=== PATIENT | female | born 1960 | race Caucasian/White ===

== ENCOUNTER 2021-02-12 09:43 | Outpatient (REF) | payer BC, SELFPAY ==
[2021-02-12 12:15] LABS: Alanine Aminotransferase 11 U/L (0-31); Anion Gap 13 (12-20); Aspartate Amino Transferase 16 U/L (5-31); Blood Urea Nitrogen 15 mg/dL (9-16); Calcium 9.8 mg/dL (8.4-10.2); Carbon Dioxide 27 mmol/L (22-29); Chloride 104 mmol/L (96-108); Estimated Glomerular Filt Rate > 60; Glucose Fasting 83 mg/dL (60-99); Iron 90 mcg/dL (30-160); Percent Iron Saturation 29 % (15-50); Potassium 4.3 mmol/L (3.3-5.1); Sodium 140 mmol/L (135-145); Total Iron Binding Capacity 315 mcg/dL (228-428); Unsaturated Iron Binding 225 ug/dL
[2021-02-12 12:23] LABS: TSH reflex Free T4 0.81 uIU/mL (0.32-4.0); Vitamin D 25-OH Total 26.1 ng/mL (>30)
== END 2021-02-12 09:44 | disposition home or self-care (01) ==
LOC: HO.HMGCLDS 09:43
PROVIDERS: PCP Internal Medicine; Visit Provider Internal Medicine
DX: F41.8 Other specified anxiety disorders (principal); I10 Essential (primary) hypertension; Z78.0 Asymptomatic menopausal state
CPT/HCPCS: 36415; 80048; 82306; 83540; 84443; 84450; 84460

== ENCOUNTER 2022-06-30 11:39 | Outpatient (AMB) | payer BC, SELFPAY ==
--- NOTE | 2022-06-30 12:00 | MHC.PC.OV ---
Vital Signs 06/30/22 12:04 Height 5 ft Weight 116 lb BMI 22.6 BP 152/100 H Blood Pressure Location Lt brachial Position Sitting Pulse 75 Pulse Source Pulse Oximeter Pulse Oximetry (%) 98 Oxygen Delivery Method Room Air Intake Visit Reasons: Med review Intake Note: Pt is here today for a b/p follow-up and medication refills Allergies No Known Allergies Allergy (Verified 10/24/22 14:07) Medication List - Last Reconciled 06/30/22 by Charissa Bruno MD amlodipine 5 mg PO DAILY lisinopril 20 mg PO DAILY metoprolol succinate ER 50 mg PO QPM paroxetine HCl 30 mg PO DAILY Tobacco use date assessed: 06/30/22 HPI Med review HPI Details 61-year-old lady with hypertension, dyslipidemia, with depression and anxiety, here today for her follow-up. She has been taking her medications as directed, but remains sedentary no regular exercise done. She also continues to smoke cigarettes at least 1 and half pack a day, with no desire to quit. [facility] Medical History Depression with anxiety Dyslipidemia Essential hypertension Fracture of left distal radius History of iron deficiency anemia Smoker unmotivated to quit Vitamin D deficiency Surgical History Previous section Family History Brother Lung cancer Mother Dementia Brother Lung cancer Social History Housing: House Patient Tobacco Use Status: Current everyday Tobacco user Tobacco use type: Cigarette Cigarette Packs Per Day: 1.5 Cigarettes Per Day: 10 Years Smoked: 22 e-Cigarette/Vaping Use: Never Used Second Hand Smoke Exposure: No service: No Current occupational status: employed and unemployed Cognitive needs: No Hearing needs: No Vision needs: No Questionnaire PHQ-9 Over the last 2 weeks, how often have you been bothered by any of the following problems? 1. Little interest or pleasure in doing things: several days 2. Feeling down, depressed, or hopeless: not at all 3. Trouble falling or staying asleep, or sleeping too much: not at all 4. Feeling tired or having little energy: not at all 5. Poor appetite or overeating: not at all 6. Feeling bad about yourself - or that you are a failure or have let yourself or your family down: not at all 7. Trouble concentrating on things, such as reading the newspaper or watching television: several days 8. Moving or speaking so slowly that other people could have noticed. Or the opposite - being so fidgety or restless that you have been moving around a lot more than usual: not at all 9. Thoughts that you would be better off or of hurting yourself in some way: not at all Total score: 2 Depression Screening Interpretation: Positive Depression Screening Follow-up: Existing condition, In treatment and Community Mental Health Worker F/U 71484 - PHQ-9 Billing: Yes Source: Developed by Drs. Jarrod Craft, Tamia Dunham, Ashish Nieto and colleagues, with an educational mireya from [employer]. Thrive Questionnaire Declines Thrive assessment: No Date Thrive assessed: 06/30/22 I am a: Patient What is your living situation today?: I have a steady place to live Within the past 12 months, did the food you bought not last and you didn't have the money to get more?: Never true Within the past 12 months, did you worry whether your food would run out before you got money to buy more?: Never true Do you have trouble paying for medicines?: No Do you have trouble getting transportation to medical appointments?: No Do you have trouble paying your heating and electricity bill?: No Do you have trouble taking care of your child, family member or friend?: No Do you have trouble with day-to-day activities such as bathing, preparing meals, shopping, managing finances, etc.?: No Are you currently unemployed and looking for a job?: No Are you interested in more education?: No AUDIT C Alcohol Use Questionnaire (AUDIT-C) 1. How often do you have a drink containing alcohol?: Never Total Score: 0 CHICA-7 AMB Questionnaire CHICA-7 Date CHICA - 7 assessed: 06/30/22 Feeling nervous, anxious, or on edge: 3 = Nearly every day Not being able to stop or control worryin = Nearly every day Worrying too much about different things: 3 = Nearly every day Trouble relaxin = Nearly every day Being so restless that it is hard to sit still: 3 = Nearly every day Becoming easily annoyed or irritable: 1 = Several days Feeling afraid as if something awful might happen: 3 = Nearly every day Total CHICA-7 score (0-4 normal; 5-9 mild; 10-14 moderate; 15-21 severe): 19 Source: Developed by Drs. Jarrod Craft, Tamia Dunham, Ashish Nieto and colleagues, with an educational mireya from [employer]. CHICA-7 Assessment Billing CHICA-7 Assessment Tool: CHICA-7 Assessment 11185 Review of Systems Const Denies body aches, Denies fatigue, Denies fever(s) and Denies headache(s) Eyes Denies change in vision ENT Denies vertigo, Denies dizziness, Denies headache(s), Denies nasal congestion, Denies nasal discharge, Denies disequilibrium and Denies sore throat Card Denies chest pain, Denies lightheadedness, Denies palpitations and Denies dyspnea Resp Denies chest congestion, Denies cough and Denies dyspnea GI Denies abdominal pain, Denies change in bowel habits and Denies heartburn Musc Denies arthralgias, Denies joint swelling and Denies stiffness Skin/Breast Denies lesions and Denies rash Neuro Denies vertigo, Denies dizziness, Denies headache(s) and Denies disequilibrium Psych Reports as per HPI Endo Denies fatigue, Denies polydipsia, Denies polyuria and Denies palpitations Abdoulaye/Lymph Reports no additional complaints Physical exam (Primary Care) Vital Signs: Last Vital Signs Pulse 75 06/30/22 12:04 BP 152/100 H 06/30/22 12:04 Pulse Ox 98 06/30/22 12:04 Oxygen Delivery Method Room Air 06/30/22 12:04 BMI result Body Mass Index 22.6 Tobacco/Smoking Status: Tobacco use Status Tobacco use date assessed 06/30/22 06/30/22 12:08 Patient Tobacco Use Status Current everyday Tobacco 06/30/22 12:02 Tobacco use type Cigarette 06/30/22 12:02 e-Cigarette/Vaping Use Never Used 06/30/22 12:02 Are you ready to quit: No Tobacco cessation counseling provided: Yes Items discussed: Nicotine replacement PHQ-9: PHQ-9 Score PHQ-9: Total score 2 06/30/22 12:26 Depression Screening Interpretation: Positive Depression Screening Follow-up: Existing condition, In treatment and Community Mental Health Worker F/U Thrive Assessment: Date of Thrive Assessment Date Thrive assessed 06/30/22 06/30/22 12:11 Const General: comfortable and no acute distress Nutritional Appearance: average body habitus Orientation/consciousness: patient oriented x3 HENMT General nose exam: Normal external nose present Mouth: Normal oral and palatal mucosa present, oropharynx normal and moist mucous membranes Throat: Yes posterior oropharynx normal Neck Neck: Yes full ROM, Yes no lymphadenopathy and Yes supple Thyroid: Thyroid normal Resp Effort & Inspection: normal respiratory effort and able to speak in complete sentences Auscultation: clear to auscultation bilaterally Cardio Rate: regular rate Rhythm: regular rhythm Heart sounds: S1 normal heart sound present and S2 normal heart sound present GI Inspection: Yes normal to inspection Palpation (GI): Soft to palpation, nontender and no masses Auscultation: normal bowel sounds Back/Spine/Pelvis Cervical Spine: cervical ROM normal Thoracic/Lumbar Spine: thoracic and lumbar spine normal to inspection Skin General skin exam: no rashes or lesions noted Neuro General: patient oriented x3, gait normal and no focal motor deficits Cognition (Neuro): normal cognition Gait exam (Neuro): Normal gait present Motor exam (neuro): 5/5 motor strength present throughout Psych Appearance: grossly normal Mental Status: mental status grossly normal Speech and movement: Normal speech and movement present Affect: normal affect Assessment and Plan Assessment & Plan (1) Essential hypertension: Code(s): I10 - Essential (primary) hypertension Plan: Blood pressure still not at goal of less than 130/80. Continue with lisinopril and metoprolol, advised to take metoprolol at bedtime, increased dose of amlodipine to 10 mg per tablet to take once a day in a.m. together with lisinopril. Reinforced importance of following a low sodium diet, getting regular exercise, and lowering stress levels. Strongly advised to quit smoking. Referred to nurse navigator to get blood pressure checked again in 1 or 2 weeks (2) Dyslipidemia: Code(s): E78.5 - Hyperlipidemia, unspecified Plan: Fasting lipid panel ordered. Advised adherence to low-cholesterol diet and regular exercise, at least 30 minutes 3 to 4 times a week. Advised patient to make healthy food choices, eat more fruits, vegetables, whole grains, wild caught fish and low-fat dairy. Limit amount of meat and fried or fatty food products, as well as processed foods and fast foods. (3) Vitamin D deficiency: Code(s): E55.9 - Vitamin D deficiency, unspecified Plan: Will check vitamin-D level (4) Pap smear for cervical cancer screening: Code(s): Z12.4 - Encounter for screening for malignant neoplasm of cervix Plan: Referred to [facility] for her routine Pap and pelvic exam, has not been checked for several years now (5) Postmenopausal: Code(s): Z78.0 - Asymptomatic menopausal state Plan: Smoking cessation strongly advised, advised to do regular weight-bearing exercise, and take adequate calcium from dietary sources and at least 2000 units of vitamin-D 3 daily. Bone density scan ordered (6) Depression with anxiety: Code(s): F41.8 - Other specified anxiety disorders Plan: Stable and controlled on paroxetine 30 mg daily (7) Smoker unmotivated to quit: Code(s): F17.200 - Nicotine dependence, unspecified, uncomplicated Plan: Patient strongly advised to stop smoking, as smoking damages blood vessels, degenerative of joints and spine, damage to lungs and heart., predisposes to developing certain cancers like lung, breast, bladder, colon. Recommended to try decreasing cigarette use by 1-2 cigarettes a day. Advised to monitor what triggers are for smoking so that this can be discussed on the next office visit. We can discuss different options to quit smoking when ready. Recommend referral for lung cancer screening and pulmonary function testing but patient declined Orders: Orders Alanine Aminotransferase 06/30/22 E78.5 - Hyperlipidemia, unspecified, I10 - Essential (primary) hypertension, E55.9 - Vitamin D deficiency, unspecified Aspartate Amino Transferase 06/30/22 E78.5 - Hyperlipidemia, unspecified, I10 - Essential (primary) hypertension, E55.9 - Vitamin D deficiency, unspecified Basic Metabolic Panel Fasting 06/30/22 E78.5 - Hyperlipidemia, unspecified, I10 - Essential (primary) hypertension, E55.9 - Vitamin D deficiency, unspecified Vitamin D 25-OH Total 06/30/22 E78.5 - Hyperlipidemia, unspecified, I10 - Essential (primary) hypertension, E55.9 - Vitamin D deficiency, unspecified XR DEXA axial skeleton 06/30/22 Z12.31 - Encounter for screening mammogram for malignant neoplasm of breast, Z78.0 - Asymptomatic menopausal state MM screening mammo BI 06/30/22 Z12.31 - Encounter for screening mammogram for malignant neoplasm of breast, Z78.0 - Asymptomatic menopausal state Lipid Panel 06/30/22 E78.5 - Hyperlipidemia, unspecified, I10 - Essential (primary) hypertension, E55.9 - Vitamin D deficiency, unspecified Referrals Cologuard Test Z12.12 - Encounter for screening for malignant neoplasm of rectum, Z12.11 - Encounter for screening for malignant neoplasm of colon [employer] Referral Z12.4 - Encounter for screening for malignant neoplasm of cervix Medications: Changed From amlodipine 5 mg PO DAILY 90 tabs 0RF I10 - Essential (primary) hypertension To amlodipine 10 mg PO DAILY 30 tabs 5RF I10 - Essential (primary) hypertension Coding Level of Care Code Est Pt Level 4 (68462) Diagnoses Essential hypertension I10 Dyslipidemia E78.5 Vitamin D deficiency E55.9 Pap smear for cervical cancer screening Z12.4 Postmenopausal Z78.0 Depression with anxiety F41.8 Smoker unmotivated to quit F17.200 Additional Codes CHICA-7 Assessment Billing - CHICA-7 Assessment Tool: CHICA-7 Assessment 33536 ([id number])
[2022-06-30 12:04] VITALS: BP 152/100; PULSE 75; O2SAT 98; BMI 22.6
== END 2022-06-30 12:44 | disposition home or self-care (01) ==
LOC: HO.HMGC 11:39
PROVIDERS: PCP Internal Medicine; Visit Provider Internal Medicine
DX: I10 Essential (primary) hypertension (principal); E78.5 Hyperlipidemia, unspecified; E55.9 Vitamin D deficiency, unspecified; Z12.4 Encounter for screening for malignant neoplasm of cervix; Z78.0 Asymptomatic menopausal state; F41.8 Other specified anxiety disorders; F17.200 Nicotine dependence, unspecified, uncomplicated
CPT/HCPCS: 99499

== ENCOUNTER 2022-06-30 12:47 | Outpatient (REF) | payer BC, SELFPAY ==
[2022-06-30 14:57] LABS: Alanine Aminotransferase 17 U/L (0-31); Anion Gap 11 (12-20); Aspartate Amino Transferase 18 U/L (5-31); Blood Urea Nitrogen 14 mg/dL (9-16); Calcium 10.1 mg/dL (8.4-10.2); Carbon Dioxide 30 mmol/L (22-29); Chloride 101 mmol/L (96-108); Cholesterol 281 mg/dL; Estimated Glomerular Filt Rate > 60; Glucose Fasting 85 mg/dL (60-99); HDL Cholesterol 72 mg/dL; LDL Cholesterol Calculated 191 mg/dl; Potassium 3.9 mmol/L (3.3-5.1); Sodium 138 mmol/L (135-145); Triglycerides 90 mg/dL; Vitamin D 25-OH Total 56.4 ng/mL (>30)
== END 2022-06-30 12:48 | disposition home or self-care (01) ==
LOC: HO.HMGCLDS 12:47
PROVIDERS: PCP Internal Medicine; Visit Provider Internal Medicine
DX: E55.9 Vitamin D deficiency, unspecified (principal); E78.5 Hyperlipidemia, unspecified; I10 Essential (primary) hypertension
CPT/HCPCS: 36415; 80048; 80061; 82306; 84450; 84460

== ENCOUNTER 2023-11-26 07:21 | Outpatient (REF) | payer BC, SELFPAY ==
[2023-11-26 10:58] LABS: Alanine Aminotransferase 14 U/L (0-31); Anion Gap 13 (12-20); Aspartate Amino Transferase 18 U/L (5-31); Blood Urea Nitrogen 13 mg/dL (9-16); Calcium 9.8 mg/dL (8.4-10.2); Carbon Dioxide 29 mmol/L (22-29); Chloride 103 mmol/L (96-108); Cholesterol 261 mg/dL (<200); Estimated Glomerular Filt Rate > 60; Glucose Fasting 91 mg/dL (60-99); HDL Cholesterol 66 mg/dL (>40); LDL Cholesterol Calculated 177 mg/dL (<100); Potassium 3.8 mmol/L (3.3-5.1); Sodium 141 mmol/L (135-145); Triglycerides 93 mg/dL (<150)
[2023-11-26 11:14] LABS: Vitamin D 25-OH Total 40.2 ng/mL (>30)
== END 2023-11-26 07:22 | disposition home or self-care (01) ==
LOC: HO.HMGCLDS 07:21
PROVIDERS: PCP Internal Medicine; Visit Provider Internal Medicine
DX: E55.9 Vitamin D deficiency, unspecified (principal); E78.5 Hyperlipidemia, unspecified; F41.8 Other specified anxiety disorders; I10 Essential (primary) hypertension
CPT/HCPCS: 36415; 80048; 80061; 82306; 84450; 84460

== ENCOUNTER 2023-12-01 13:21 | Outpatient (AMB) | payer BC, SELFPAY ==
--- NOTE | 2023-12-01 13:54 | A.OFFPC_ITS ---
<Statement entered by Charissa Bruno MD - 12/06/24 15:30> This note has been administratively?closed. Vital Signs 12/01/23 14:02 Height 5 ft Weight 122 lb BMI 23.8 BP 158/90 H Blood Pressure Location Lt brachial Position Sitting Pulse 81 Pulse Source Pulse Oximeter Pulse Oximetry (%) 97 Oxygen Delivery Method Room Air Intake Visit Reasons: physical, medications, last seen 06/2022 Intake Note: Pt is here today for her PE: Pt states doens't remember last mammogram or papsmear and she never had colonoscopy and declines it( pt hasn't taken b/p med lisinopril x1wk) Allergies No Known Allergies Allergy (Verified 12/01/23 14:23) Medication List - Last Reconciled 12/01/23 by Charissa Bruno MD amlodipine 10 mg PO DAILY lisinopril 20 mg PO DAILY metoprolol succinate ER 50 mg PO QPM paroxetine HCl 30 mg PO DAILY Tobacco use date assessed: 12/01/23 Dental Screening Dental Screen Date: 12/01/23 Did you have a dental visit in the last 12 months?: Yes Did you have a dental problem in the last 6 months where you did not have access to dental care?: Yes Was dental information given to patient?: Patient has dentist HPI physical, medications, last seen 06/2022 HPI Details 62 year old lady with Hypertension PFSH Medical History Depression with anxiety Dyslipidemia Essential hypertension Fracture of left distal radius History of iron deficiency anemia Smoker unmotivated to quit Vitamin D deficiency Surgical History Previous section Family History Brother Lung cancer Mother Dementia Brother Lung cancer Social History Housing: House Patient Tobacco Use Status: Current everyday Tobacco user Tobacco use type: Cigarette Cigarette Packs Per Day: 1.5 Cigarettes Per Day: 10 Years Smoked: 22 e-Cigarette/Vaping Use: Never Used Second Hand Smoke Exposure: No service: No Current occupational status: employed Cognitive needs: No Hearing needs: No Vision needs: No Questionnaire PHQ-9 Over the last 2 weeks, how often have you been bothered by any of the following problems? 1. Little interest or pleasure in doing things: nearly every day Source: Developed by Drs. Jarrod Craft, Ashish Henry and colleagues, with an educational mireya from [employer]. Thrive Questionnaire Date Thrive assessed: 06/30/22 AUDIT C Alcohol Use Questionnaire (AUDIT-C) 1. How often do you have a drink containing alcohol?: Never Total Score: 0 CHICA-7 AMB Questionnaire CHICA-7 Date CHICA - 7 assessed: 06/30/22 Source: Developed by Drs. Jarrod Craft, Tamia Dunham, Ashish Nieto and colleagues, with an educational mireya from [employer]. Physical exam (Primary Care) Vital Signs: Last Vital Signs Pulse 81 12/01/23 14:02 BP 158/90 H 12/01/23 14:02 Pulse Ox 97 12/01/23 14:02 Oxygen Delivery Method Room Air 12/01/23 14:02 BMI result Body Mass Index 23.8 Tobacco/Smoking Status: Tobacco use Status Tobacco use date assessed 12/01/23 12/01/23 14:04 Patient Tobacco Use Status Current everyday Tobacco 12/01/23 13:55 Tobacco use type Cigarette 12/01/23 13:55 e-Cigarette/Vaping Use Never Used 12/01/23 13:55 Thrive Assessment: Date of Thrive Assessment Date Thrive assessed 06/30/22 12/01/23 13:55 Assessment and Plan Assessment & Plan (1) Annual visit for general adult medical examination with abnormal findings: Code(s): Z00.01 - Encounter for general adult medical examination with abnormal findings Orders: Orders XR DEXA axial skeleton Today Z00.01 - Encounter for general adult medical examination with abnormal findings, Z12.31 - Encounter for screening mammogram for malignant neoplasm of breast, Z78.0 - Asymptomatic menopausal state, Z87.81 - Personal history of (healed) traumatic fracture MM tomosynthesis screening BI Today Z00.01 - Encounter for general adult medical examination with abnormal findings, Z12.31 - Encounter for screening mammogram for malignant neoplasm of breast, Z78.0 - Asymptomatic menopausal state, Z87.81 - Personal history of (healed) traumatic fracture Medications: Refilled amlodipine 10 mg PO DAILY 90 tabs 4RF I10 - Essential (primary) hypertension Coding Level of Care Code Est Pt Prev Care 40-64y(06111) Diagnoses Annual visit for general adult medical examination with abnormal findings Z00.01
[2023-12-01 14:02] VITALS: BP 158/90; PULSE 81; O2SAT 97; BMI 23.8
== END 2023-12-01 14:58 | disposition home or self-care (01) ==
PROVIDERS: PCP Internal Medicine; Visit Provider Internal Medicine
DX: Z00.01 Encounter for general adult medical examination with abnormal findings (principal)
CPT/HCPCS: 99499

== ENCOUNTER 2025-01-01 12:52 | Outpatient (REF) | payer BC, SELFPAY ==
[2025-01-01 16:46] LABS: Alanine Aminotransferase 16 U/L (0-31); Anion Gap 12 (12-20); Aspartate Amino Transferase 23 U/L (5-31); Blood Urea Nitrogen 15 mg/dL (9-16); Calcium 9.6 mg/dL (8.4-10.2); Carbon Dioxide 27 mmol/L (22-29); Chloride 107 mmol/L (96-108); Cholesterol 267 mg/dL (<200); Estimated Glomerular Filt Rate > 60; Glucose Fasting 89 mg/dL (60-99); HDL Cholesterol 61 mg/dL (>40); LDL Cholesterol Calculated 190 mg/dL (<100); Potassium 3.6 mmol/L (3.3-5.1); Sodium 142 mmol/L (135-145); Triglycerides 84 mg/dL (<150)
[2025-01-01 17:06] LABS: Vitamin D 25-OH Total 52.4 ng/mL (>30)
== END 2025-01-01 12:53 | disposition home or self-care (01) ==
LOC: HO.HMGCLDS 12:52
PROVIDERS: PCP Internal Medicine; Visit Provider Internal Medicine
DX: Z00.01 Encounter for general adult medical examination with abnormal findings (principal); I10 Essential (primary) hypertension; F41.8 Other specified anxiety disorders; E78.5 Hyperlipidemia, unspecified; F17.210 Nicotine dependence, cigarettes, uncomplicated; Z78.0 Asymptomatic menopausal state
CPT/HCPCS: 36415; 80048; 80061; 82306; 84450; 84460; 96127

== ENCOUNTER 2025-01-01 12:52 | Outpatient (AMB) | payer BC, SELFPAY ==
--- NOTE | 2025-01-01 12:54 | MHC.PC.OV ---
Vital Signs 01/01/25 13:01 01/01/25 13:42 Weight 118 lb BP 168/90 H 145/90 H Blood Pressure Location Lt brachial Lt brachial Position Sitting Sitting Respiration 16 Pulse 78 Pulse Source Pulse Oximeter Temp 98.2 F Temp Source Oral Pulse Oximetry (%) 96 Oxygen Delivery Method Room Air Intake Visit Reasons: PE Intake Note: Patient Esme is here today for PE. Allergies No Known Allergies Allergy (Verified 01/01/25 13:19) Medication List - Last Reconciled 01/01/25 by Charissa Bruno MD amlodipine 10 mg PO DAILY lisinopril 20 mg PO DAILY metoprolol succinate ER 50 mg PO QPM paroxetine HCl 30 mg PO DAILY Tobacco use date assessed: 01/01/25 Fall risk assessment: No Falls in past year Last assessed Fall Risk: 01/01/25 Dental Screening Dental Screen Date: 01/01/25 Did you have a dental visit in the last 12 months?: Yes Did you have a dental problem in the last 6 months where you did not have access to dental care?: No Was dental information given to patient?: Patient has dentist HPI PE HPI Details 64-year-old lady with history of hypertension, dyslipidemia, depression with anxiety, here today for her physical exam. She has hypertension currently on amlodipine, lisinopril and metoprolol, blood pressure however today is elevated. She takes all 3 blood pressure medicines in the morning. Continues to smoke cigarettes 15 a day, wants to help quitting , interested in trying the nicotine patch. She has dyslipidemia, will check another fasting lipid panel today. Has not really been exercising or following any particular diet. Overdue for her screening mammogram and bone density scan as well as colon cancer screenin. Did not do Cologuard test that was sent last year, patient states that she will do this year. Complaining of pain in the base of both thumbs radiating to D IP joint in both thumbs. Worse with movement. Does not take anything for the except for an occasional Motrin which has been helping. 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 Does not want to do any cervical cancer screening or pelvic exam. Does not want to get any vaccines. [facility] Medical History (Updated 01/01/25 @ 13:54 by Charissa Bruno MD) Annual visit for general adult medical examination with abnormal findings Vitamin D deficiency Fracture of left distal radius Dyslipidemia History of iron deficiency anemia Depression with anxiety Essential hypertension Surgical History Previous section Family History Brother Lung cancer Mother Dementia Brother Lung cancer Social History Housing: House Patient Tobacco Use Status: Current everyday Tobacco user Tobacco use type: Cigarette Cigarette Packs Per Day: 0.5 Cigarettes Per Day: 10 Years Smoked: 22 e-Cigarette/Vaping Use: Never Used Second Hand Smoke Exposure: No service: No Current occupational status: employed Cognitive needs: No Hearing needs: No Vision needs: No Questionnaire PHQ-9 Over the last 2 weeks, how often have you been bothered by any of the following problems? 1. Little interest or pleasure in doing things: not at all 2. Feeling down, depressed, or hopeless: several days 3. Trouble falling or staying asleep, or sleeping too much: not at all 4. Feeling tired or having little energy: not at all 5. Poor appetite or overeating: not at all 6. Feeling bad about yourself - or that you are a failure or have let yourself or your family down: not at all 7. Trouble concentrating on things, such as reading the newspaper or watching television: not at all 8. Moving or speaking so slowly that other people could have noticed. Or the opposite - being so fidgety or restless that you have been moving around a lot more than usual: not at all 9. Thoughts that you would be better off or of hurting yourself in some way: not at all Total score: 1 Depression Screening Interpretation: Positive (Controlled on paroxetine) Depression Screening Follow-up: Existing condition and In treatment Depression Screening Done: Yes 03440 - PHQ-9 Billing: Yes Source: Developed by Drs. Jarrod Craft, Tamia Dunham, Ashish Nieto and colleagues, with an educational mireya from [employer]. Thrive Questionnaire Date Thrive assessed: 01/01/25 I am a: Patient What is your living situation today?: I have a steady place to live Within the past 12 months, did the food you bought not last and you didn't have the money to get more?: Never true Within the past 12 months, did you worry whether your food would run out before you got money to buy more?: Never true Do you have trouble paying for medicines?: No Do you have trouble getting transportation to medical appointments?: No Do you have trouble paying your heating and electricity bill?: No Do you have trouble taking care of your child, family member or friend?: No Do you have trouble with day-to-day activities such as bathing, preparing meals, shopping, managing finances, etc.?: No Are you currently unemployed and looking for a job?: No Are you interested in more education?: No THRIVE Score: 0 AUDIT C Alcohol Use Questionnaire (AUDIT-C) 1. How often do you have a drink containing alcohol?: Never Total Score: 0 CHICA-7 AMB Questionnaire CHICA-7 Date CHICA - 7 assessed: 01/01/25 Feeling nervous, anxious, or on edge: 1 = Several days Not being able to stop or control worryin = Not at all Worrying too much about different things: 1 = Several days Trouble relaxin = Not at all Being so restless that it is hard to sit still: 0 = Not at all Becoming easily annoyed or irritable: 0 = Not at all Feeling afraid as if something awful might happen: 0 = Not at all Total CHICA-7 score (0-4 normal; 5-9 mild; 10-14 moderate; 15-21 severe): 2 Source: Developed by Drs. Jarrod Craft, Tamia Dunham, Ashish Nieto and colleagues, with an educational mireya from [employer]. CHICA-7 Assessment Billing CHICA-7 Assessment Tool: CHICA-7 Assessment 87592 Review of Systems Const Denies fatigue, Denies fever(s) and Denies headache(s) Eyes Denies change in vision ENT Denies vertigo, Denies dizziness, Denies headache(s), Denies nasal congestion and Denies disequilibrium Card Denies chest pain, Denies lightheadedness, Denies palpitations and Denies dyspnea Resp Denies chest congestion, Denies cough and Denies dyspnea GI Denies abdominal pain, Denies change in bowel habits and Denies heartburn Reports no additional complaints Musc Reports as per HPI Skin/Breast Denies lesions and Denies rash Neuro Denies vertigo, Denies dizziness, Denies headache(s) and Denies disequilibrium Psych Reports as per HPI Endo Denies fatigue, Denies polydipsia, Denies polyuria and Denies palpitations Abdoulaye/Lymph Reports no additional complaints Aller/Immun Reports no additional complaints Physical exam (Primary Care) Vital Signs: Last Vital Signs Temp 98.2 F 01/01/25 13:01 Pulse 78 01/01/25 13:01 Resp 16 01/01/25 13:01 BP 168/90 H 01/01/25 13:01 Pulse Ox 96 01/01/25 13:01 Oxygen Delivery Method Room Air 01/01/25 13:01 Tobacco/Smoking Status: Tobacco use Status Tobacco use date assessed 01/01/25 01/01/25 13:06 Patient Tobacco Use Status Current everyday Tobacco 01/01/25 12:56 Tobacco use type Cigarette 01/01/25 12:56 e-Cigarette/Vaping Use Never Used 01/01/25 12:56 Depression Screening Interpretation: Positive (Controlled on paroxetine) Depression Screening Follow-up: Existing condition and In treatment Thrive Assessment: Date of Thrive Assessment Date Thrive assessed 06/30/22 01/01/25 12:56 Advance Care Planning discussion: Declined forms Const General: no acute distress Nutritional Appearance: average body habitus Orientation/consciousness: patient oriented x3 HENMT General nose exam: Normal external nose present Mouth: Normal oral and palatal mucosa present, oropharynx normal and moist mucous membranes Eyes General: appearance normal, both eyes and all related structures Neck Neck: Yes full ROM, Yes no lymphadenopathy and Yes supple Thyroid: Thyroid normal Chest Breast/axilla palpation: normal palpation of the breasts Resp Effort & Inspection: normal respiratory effort and able to speak in complete sentences Auscultation: clear to auscultation bilaterally Cardio Rate: regular rate Rhythm: regular rhythm Heart sounds: S1 normal heart sound present and S2 normal heart sound present GI Inspection: Yes normal to inspection Palpation (GI): Soft to palpation, nontender and no masses Auscultation: normal bowel sounds General: Yes no CVA tenderness and Yes deferred (Patient declined exam) Back/Spine/Pelvis Back: no CVA tenderness and No back tenderness Skin General skin exam: no rashes or lesions noted Neuro General: patient oriented x3, gait normal and no focal motor deficits Cognition (Neuro): normal cognition Gait exam (Neuro): Normal gait present Motor exam (neuro): 5/5 motor strength present throughout Extrem Other: Tenderness on palpation at base of bilateral thumbs, with pain on extension flexion of both thumbs General: Yes full ROM Psych Appearance: grossly normal Mental Status: mental status grossly normal Speech and movement: Normal speech and movement present Affect: normal affect Coding Level of Care Code Est Pt Prev Care >65y(50692) Diagnoses Essential hypertension I10 Depression with anxiety F41.8 Dyslipidemia E78.5 Encounter for screening for osteoporosis Z13.820 Cigarette smoker motivated to quit F17.210 Annual visit for general adult medical examination with abnormal findings Z00.01 Additional Codes PHQ-9 - 79143 - PHQ-9 Billing: Yes ([id number]) CHICA-7 Assessment Billing - CHICA-7 Assessment Tool: CHICA-7 Assessment 03167 ([id number]) Vital Signs *Quality* - Advance Care Planning discussion: Declined forms ([id number]) Assessment & Plan Assessment & Plan (1) Essential hypertension: Code(s): I10 - Essential (primary) hypertension Category: Medical Plan: Blood pressure elevated on this visit. Advised to take lisinopril and amlodipine in the morning and take metoprolol succinate ER at night. Return to clinic and see nurse navigator next week to for blood pressure check. Smoking cessation strongly recommended patient will be starting nicotine patch, reinforced importance of following a low-salt diet and getting regular exercise. (2) Depression with anxiety: Code(s): F41.8 - Other specified anxiety disorders Category: Medical Plan: Controlled on paroxetine 30 mg daily (3) Dyslipidemia: Code(s): E78.5 - Hyperlipidemia, unspecified Category: Medical Plan: Fasting lipid panel ordered today. (4) Encounter for screening for osteoporosis: Code(s): Z13.820 - Encounter for screening for osteoporosis Plan: Ordered bone density scan (5) Cigarette smoker motivated to quit: Code(s): F17.210 - Nicotine dependence, cigarettes, uncomplicated Plan: Prescription started on nicotine patch 14 mg per patch, to use as directed, rotate sites of application, remove at night. See me back for follow-up on the 4th week of starting the patch, do not smoke when using the nicotine patch (6) Annual visit for general adult medical examination with abnormal findings: Code(s): Z00.01 - Encounter for general adult medical examination with abnormal findings Category: Medical Plan: Will check appropriate labs. Recommended dental visit every 6 months and regular eye exams, at least every 2 years. Take adequate calcium in diet and vitamin-D 3 at 2000 IU per cap once a day, in addition to weight-bearing exercises to help maintain good muscle tone and weight control. Instructed to do self-breast exam, and recommended to get yearly mammogram, ordered today together with a bone density scan. Patient declines all vaccines. Cologuard test ordered for colon cancer screening. Orders: Orders Basic Metabolic Panel Fasting Today E78.5 - Hyperlipidemia, unspecified, F41.8 - Other specified anxiety disorders, I10 - Essential (primary) hypertension, Z12.11 - Encounter for screening for malignant neoplasm of colon, Z12.12 - Encounter for screening for malignant neoplasm of rectum, Z78.0 - Asymptomatic menopausal state Lipid Panel Today E78.5 - Hyperlipidemia, unspecified, F41.8 - Other specified anxiety disorders, I10 - Essential (primary) hypertension, Z12.11 - Encounter for screening for malignant neoplasm of colon, Z12.12 - Encounter for screening for malignant neoplasm of rectum, Z78.0 - Asymptomatic menopausal state MM tomosynthesis screening BI Today Z12.31 - Encounter for screening mammogram for malignant neoplasm of breast, Z13.820 - Encounter for screening for osteoporosis, Z78.0 - Asymptomatic menopausal state, Z87.81 - Personal history of (healed) traumatic fracture Alanine Aminotransferase Today E78.5 - Hyperlipidemia, unspecified, F41.8 - Other specified anxiety disorders, I10 - Essential (primary) hypertension, Z12.11 - Encounter for screening for malignant neoplasm of colon, Z12.12 - Encounter for screening for malignant neoplasm of rectum, Z78.0 - Asymptomatic menopausal state Aspartate Amino Transferase Today E78.5 - Hyperlipidemia, unspecified, F41.8 - Other specified anxiety disorders, I10 - Essential (primary) hypertension, Z12.11 - Encounter for screening for malignant neoplasm of colon, Z12.12 - Encounter for screening for malignant neoplasm of rectum, Z78.0 - Asymptomatic menopausal state Vitamin D 25-OH Total Today E78.5 - Hyperlipidemia, unspecified, F41.8 - Other specified anxiety disorders, I10 - Essential (primary) hypertension, Z12.11 - Encounter for screening for malignant neoplasm of colon, Z12.12 - Encounter for screening for malignant neoplasm of rectum, Z78.0 - Asymptomatic menopausal state XR DEXA axial skeleton Today Z12.31 - Encounter for screening mammogram for malignant neoplasm of breast, Z13.820 - Encounter for screening for osteoporosis, Z78.0 - Asymptomatic menopausal state, Z87.81 - Personal history of (healed) traumatic fracture Referrals Cologuard Test Z12.11 - Encounter for screening for malignant neoplasm of colon, Z12.12 - Encounter for screening for malignant neoplasm of rectum Medications: New nicotine 1 patch transdermal DAILY 28 ea 0RF F17.200 - Nicotine dependence, unspecified, uncomplicated, Z87.891 - Personal history of nicotine dependence
[2025-01-01 13:01] VITALS: BP 168/90; PULSE 78; RESP 16; TEMP 36.8; O2SAT 96
[2025-01-01 13:42] VITALS: BP 145/90
== END 2025-01-01 14:04 | disposition home or self-care (01) ==
LOC: HO.HMCC 12:52
PROVIDERS: PCP Internal Medicine; Visit Provider Internal Medicine
DX: I10 Essential (primary) hypertension (principal); F41.8 Other specified anxiety disorders; E78.5 Hyperlipidemia, unspecified; Z13.820 Encounter for screening for osteoporosis; F17.210 Nicotine dependence, cigarettes, uncomplicated; Z00.01 Encounter for general adult medical examination with abnormal findings; Z00.00 Encounter for general adult medical examination without abnormal findings